=== PATIENT | female | born 1985 | race Two or more races ===

== ENCOUNTER 2021-05-26 20:38 | Emergency (ER) | payer OTHER ==
[~2021-05-26] VITALS: Ht 160 cm; Wt 63.5 kg
[~2021-05-26 20:38] MED LIST: KEPPRA1000 MG; LAMICTAL100 MG PO; ZANTAC150 MG
[2021-05-26] MEDS ORDERED: TRIMETHOPRIM (20:54)
[2021-05-26] MEDS ORDERED: SULFAMETHOXAZOLE (20:54)
[2021-05-26] MEDS ORDERED: PANADOL (20:55)
== END 2021-05-27 08:58 | disposition home or self-care (01) ==
LOC: ER 20:38
DX: R10.31 Right lower quadrant pain (principal); N73.0 Acute parametritis and pelvic cellulitis

== ENCOUNTER 2025-03-08 10:00 | Inpatient (IN) | payer OTHER ==
[~2025-03-08] VITALS: Ht 160 cm; Wt 56.7 kg
[~2025-03-08 10:00] MED LIST changes: -KEPPRA1000 MG; +KEPPRA1000 MG PO; +PANADOL; +SULFAMETHOXAZOLE; +TRIMETHOPRIM
[2025-03-08] MEDS ORDERED: GALLIFREY5 MG PO (10:54)
[2025-03-08] MEDS ORDERED: ZEPBOUND12.5 MG/0. (10:54)
[2025-03-08] MEDS ORDERED: LIPITOR40 MG PO (10:54)
[2025-03-08] MEDS ORDERED: DICLOFENAC POTA50 MG PO (10:56)
[2025-03-08 11:18] LABS: BASO % 1.1 % (0.1-1.2); EOS # 0.09 (0.04-0.54); EOS % 1.5 % (0.7-7.0); LYMPH # 1.98 (1.18-3.74); LYMPH % 32.4 % (19.3-53.1); MEAN PLATELET VOLUME 11.50 fl (9.4-12.4); MONO # 0.29 (0.24-0.82); MONO % 4.7 % (4.7-12.5); NEUT # 3.67 (1.56-6.13); NEUT % 60.0 % (34.0-71.1); RED CELL DISTRIBUTION WIDTH 16.9 % (11.6-14.4)
[2025-03-08 11:24] LABS: URINE APPEARANCE Clear; URINE BILIRRUBIN Negative (NEGATIVE); URINE BLOOD Trace; URINE COLOR Yellow; URINE GLUCOSE Negative (NEGATIVE); URINE KETONE Trace (NEGATIVE); URINE LEUKOCYTE Trace; URINE NITRATE Negative; URINE PROTEIN Trace (NEGATIVE); URINE UROBILINOGEN 0.2 E.U./dl
[2025-03-08 11:29] LABS: URINE BACTERIA 335.9 uL (0.0-1933); URINE EPITHELIAL CELLS 22.4 uL (0.0-38.8); URINE RBC 4.3 uL (0.0-20.8); URINE WBC 40.1 uL (0.0-23.2)
[2025-03-08 11:34] LABS: COVID-19 AG NEGATIVE (NEGATIVE)
[2025-03-08 12:02] LABS: ALT/SGPT 30.0 U/L (12-78); AST/SGOT 18.0 U/L (15-37); BILIRUBIN TOTAL 0.42 mg/dL (0.3-1.2); BUN CREA RATIO 14.0 (7.0-25.0); CREATININE SERUM 0.81 mg/dL (0.55-1.02); GFR 77.54; GLOBULINA 3.5 G/DL (2.4-3.5); GLUCOSE FASTING 85.0 mg/dL (65-100); OSMOLALITY SERUM 287.0 MOSM/KG (275-295)
[2025-03-08 12:03] LABS: URINE CAST 0.58 uL (0.0-1.40); URINE MUCUS HEAVY
[2025-03-08 12:21] LABS: INR 1.0
[2025-03-08 12:26] LABS: RH POSITIVE
[2025-03-16] MEDS ORDERED: CEFTRIAXONE SODIUM 2,000 MG VIAL IV ONE (11:45)
[2025-03-16] MEDS ORDERED: THROMBIN,HU/FIBRINOGEN/CALCIUM 10 ML SYRINGE TOP ONE (11:45)
[2025-03-16] MEDS ORDERED: BUPIVACAINE HCL/PF 0.25% 30ML VIAL InF ONE (11:45)
[2025-03-16] MEDS ORDERED: METRONIDAZOLE/SODIUM CHLORIDE 500 MG/100 ML PIGGYBACK IV ONE (11:45)
[2025-03-16] MEDS ORDERED: VISTASEAL DUAL APPICATOR 1 EACH APPL TOP ONE (11:45)
[2025-03-16] MEDS ORDERED: LIDOCAINE HCL 1%/EPINEPHRINE 20ML VIAL IJ ONE (11:45)
[2025-03-16 13:14] LABS: BASO % 0.3 % (0.1-1.2); EOS # 0.03 (0.04-0.54); EOS % 0.3 % (0.7-7.0); LYMPH # 1.17 (1.18-3.74); LYMPH % 9.9 % (19.3-53.1); MEAN PLATELET VOLUME 11.70 fl (9.4-12.4); MONO # 0.80 (0.24-0.82); MONO % 6.8 % (4.7-12.5); NEUT # 9.70 (1.56-6.13); NEUT % 82.4 % (34.0-71.1); RED CELL DISTRIBUTION WIDTH 17.7 % (11.6-14.4)
[2025-03-16] MEDS ORDERED: DEXTROSE 50 % IN WATER 0.5 G/ML VIAL IV PRN (16:00)
[2025-03-16] MEDS ORDERED: OxyCODONE HCL 5 MG TABLET (ROXICODONE) PO PRN (16:00)
[2025-03-16] MEDS ORDERED: RINGERS SOLUTION,LACTATED 1,000 ML IV SCH (16:00)
[2025-03-16] MEDS ORDERED: MORPHINE SULFATE 4 MG/ML CARTRIDGE IV PRN (16:00)
[2025-03-16] MEDS ORDERED: ONDANSETRON HCL 2 MG/ML VIAL IV PRN (16:00)
[2025-03-16] MEDS ORDERED: SIMETHICONE 125 MG CAPSULE PO SCH (17:00)
[2025-03-16] MEDS ORDERED: METOCLOPRAMIDE HCL 5 MG/ML VIAL IV SCH (17:00)
[2025-03-16] MEDS ORDERED: HYOSCYAMINE SULFATE 0.125 MG TAB.SUBL SL SCH (17:00)
[2025-03-16] MEDS ORDERED: GABAPENTIN 300 MG CAPSULE PO SCH (17:00)
[2025-03-16] MEDS ORDERED: MORPHINE SULFATE 4 MG/ML VIAL IV ONE ×2 (17:15→18:40)
[2025-03-16] MEDS ORDERED: ONDANSETRON HCL 2 MG/ML VIAL IV ONE (17:15)
[2025-03-16] MEDS ORDERED: KETOROLAC TROMETHAMINE 30 MG VIAL IV ONE (19:30)
[2025-03-16] MEDS ORDERED: ACETAMINOPHEN 500 MG GEL..CAP PO SCH (20:00)
[2025-03-16 20:48] VITALS: BP 115/70
[2025-03-16 20:51] LABS: BASO % 0.0 % (0.1-1.2); EOS # 0.00 (0.04-0.54); EOS % 0.0 % (0.7-7.0); LYMPH # 0.25 (1.18-3.74); LYMPH % 15.0 % (19.3-53.1); MEAN PLATELET VOLUME 11.00 fl (9.4-12.4); MONO # 0.28 (0.24-0.82); NEUT # 1.14 (1.56-6.13); NEUT % 68.2 % (34.0-71.1); RED CELL DISTRIBUTION WIDTH 17.6 % (11.6-14.4)
[2025-03-16 20:53] LABS: MONO % 16.8 % (4.7-12.5)
[2025-03-16] MEDS ORDERED: FAMOTIDINE/PF 20 MG/2 ML VIAL IV PUSH SCH (21:00)
[2025-03-16] MEDS ORDERED: CELECOXIB 200 MG CAPSULE PO SCH (21:00)
[2025-03-16] MEDS ORDERED: KETOROLAC TROMETHAMINE 30 MG VIAL IV SCH (21:00)
[2025-03-16 22:16] LABS: BASO % 0.0 % (0.1-1.2); EOS # 0.00 (0.04-0.54); EOS % 0.0 % (0.7-7.0); LYMPH # 0.32 (1.18-3.74); LYMPH % 16.5 % (19.3-53.1); MEAN PLATELET VOLUME 11.10 fl (9.4-12.4); MONO # 0.32 (0.24-0.82); NEUT # 1.30 (1.56-6.13); NEUT % 67.0 % (34.0-71.1); RED CELL DISTRIBUTION WIDTH 17.7 % (11.6-14.4)
[2025-03-16 22:29] LABS: MONO % 16.5 % (4.7-12.5)
[2025-03-17] VITALS: BP 128/79; O2SAT 98
[2025-03-17 04:30] VITALS: BP 115/78
[2025-03-17 06:13] LABS: BASO % 0.0 % (0.1-1.2); EOS # 0.00 (0.04-0.54); EOS % 0.0 % (0.7-7.0); LYMPH # 0.57 (1.18-3.74); LYMPH % 7.4 % (19.3-53.1); MEAN PLATELET VOLUME 11.70 fl (9.4-12.4); MONO # 0.51 (0.24-0.82); MONO % 6.6 % (4.7-12.5); NEUT # 6.61 (1.56-6.13); NEUT % 85.9 % (34.0-71.1); RED CELL DISTRIBUTION WIDTH 17.6 % (11.6-14.4)
[2025-03-17 07:00] LABS: BUN CREA RATIO 6.0 (7.0-25.0); CREATININE SERUM 0.78 mg/dL (0.55-1.02); GFR 80.99; GLUCOSE FASTING 140.0 mg/dL (65-100); OSMOLALITY SERUM 285.0 MOSM/KG (275-295)
[2025-03-17] MEDS ORDERED: MAGNESIUM SULFATE IN WATER 50 ML IV NR (07:45)
[2025-03-17 08:00] VITALS: BP 106/68
[2025-03-17] MEDS ORDERED: LevETIRAcetam 500 MG TAB. PO SCH ×2 (09:00→21:00)
[2025-03-17] MEDS ORDERED: LACTOBACILLUS ACIDOPHILUS 1 CAP CAP PO SCH (09:00)
[2025-03-17 16:45] VITALS: BP 119/79
[2025-03-17] MEDS ORDERED: ENOXAPARIN SODIUM 40 MG/0.4 ML SYRINGE SUBCUTANEO SCH (17:00)
[2025-03-17] MEDS ORDERED: ATORVASTATIN CALCIUM 40 MG TABLET PO SCH (17:00)
[2025-03-18 02:02] VITALS: BP 104/63
[2025-03-18 06:46] LABS: BASO % 0.4 % (0.1-1.2); EOS # 0.02 (0.04-0.54); EOS % 0.2 % (0.7-7.0); LYMPH # 0.93 (1.18-3.74); LYMPH % 8.2 % (19.3-53.1); MEAN PLATELET VOLUME 11.70 fl (9.4-12.4); MONO # 0.48 (0.24-0.82); MONO % 4.2 % (4.7-12.5); NEUT # 9.73 (1.56-6.13); NEUT % 86.1 % (34.0-71.1); RED CELL DISTRIBUTION WIDTH 18.5 % (11.6-14.4)
[2025-03-18 07:41] LABS: BUN CREA RATIO 11.0 (7.0-25.0); CREATININE SERUM 0.65 mg/dL (0.55-1.02); GFR 99.96; GLUCOSE FASTING 97.0 mg/dL (65-100); OSMOLALITY SERUM 287.0 MOSM/KG (275-295)
[2025-03-18 08:00] VITALS: BP 114/61
[2025-03-18] MEDS ORDERED: GABAPENTIN 300 MG CAPSULE PO PRN (08:44)
[2025-03-18] MEDS ORDERED: SOD FERRIC GLUC COMPLX/SUCROSE 62.5 MG in 0.9 % SODIUM CHLORIDE 50 ML IV SCH (09:00)
[2025-03-18] MEDS ORDERED: ATORVASTATIN CALCIUM 40 MG TABLET PO SCH (09:00)
[2025-03-18] MEDS ORDERED: Cyanocobalamin/Mecobalamin 1 TAB.SL SL SCH (09:00)
[2025-03-18] MEDS ORDERED: ENOXAPARIN SODIUM 40 MG/0.4 ML SYRINGE SUBCUTANEO SCH (09:00)
[2025-03-18] MEDS ORDERED: POTASSIUM PHOS,M-BASIC-D-BASIC 3 MM/ML VIAL IV NR (09:15)
[2025-03-18 16:00] VITALS: BP 111/66; O2SAT 96
[2025-03-18] MEDS ORDERED: OxyCODONE HCL 5 MG TABLET (ROXICODONE) PO PRN (19:30)
[2025-03-19 00:29] VITALS: BP 98/61; O2SAT 96
[2025-03-19 08:00] VITALS: BP 107/68; O2SAT 95
[2025-03-19 08:22] LABS: BASO % 0.2 % (0.1-1.2); EOS # 0.25 (0.04-0.54); EOS % 2.4 % (0.7-7.0); LYMPH # 1.66 (1.18-3.74); LYMPH % 16.1 % (19.3-53.1); MEAN PLATELET VOLUME 11.70 fl (9.4-12.4); MONO # 0.50 (0.24-0.82); MONO % 4.8 % (4.7-12.5); NEUT # 7.84 (1.56-6.13); NEUT % 76.0 % (34.0-71.1); RED CELL DISTRIBUTION WIDTH 19.0 % (11.6-14.4)
== END 2025-03-19 12:33 | disposition home or self-care (01) | DRG 743 ==
LOC: SURH 03-16 07:00 → O/R 03-16 16:56 → OB/GYN 03-16 16:56
PROVIDERS: Internal Medicine Geriatric Medicine; Student in an Organized Health Care Education/Training Program; Surgery; Urology; ADMIT Obstetrics & Gynecology Gynecology; ATTEND Obstetrics & Gynecology Gynecology
PROC: 0DNW4ZZ Release Peritoneum, Percutaneous Endoscopic Approach (ICD-10-PCS; 2025-03-16)
PROC: 0TN74ZZ Release Left Ureter, Percutaneous Endoscopic Approach (ICD-10-PCS; 2025-03-16)
PROC: 0TN64ZZ Release Right Ureter, Percutaneous Endoscopic Approach (ICD-10-PCS; 2025-03-16)
PROC: 0DTN4ZZ Resection of Sigmoid Colon, Percutaneous Endoscopic Approach (ICD-10-PCS; 2025-03-16)
PROC: 0DBP4ZZ Excision of Rectum, Percutaneous Endoscopic Approach (ICD-10-PCS; 2025-03-16)
PROC: 0DNW4ZZ Release Peritoneum, Percutaneous Endoscopic Approach (ICD-10-PCS; 2025-03-16)
PROC: 0DTK4ZZ Resection of Ascending Colon, Percutaneous Endoscopic Approach (ICD-10-PCS; 2025-03-16)
PROC: 0DBB4ZZ Excision of Ileum, Percutaneous Endoscopic Approach (ICD-10-PCS; 2025-03-16)
PROC: 0DBP4ZZ Excision of Rectum, Percutaneous Endoscopic Approach (ICD-10-PCS; 2025-03-16)
PROC: 0UBG4ZZ Excision of Vagina, Percutaneous Endoscopic Approach (ICD-10-PCS; 2025-03-16)
PROC: 0T788DZ Dilation of Bilateral Ureters with Intraluminal Device, Via Natural or Artificial Opening Endoscopic (ICD-10-PCS; 2025-03-16)
PROC: 0DJD8ZZ Inspection of Lower Intestinal Tract, Via Natural or Artificial Opening Endoscopic (ICD-10-PCS; 2025-03-16)
PROC: 0UT94ZZ Resection of Uterus, Percutaneous Endoscopic Approach (ICD-10-PCS; principal; 2025-03-16 07:00)
PROC: 0UT74ZZ Resection of Bilateral Fallopian Tubes, Percutaneous Endoscopic Approach (ICD-10-PCS; 2025-03-16 07:00)
PROC: 0UT24ZZ Resection of Bilateral Ovaries, Percutaneous Endoscopic Approach (ICD-10-PCS; 2025-03-16 07:00)
DX: D25.1 Intramural leiomyoma of uterus (principal); D25.2 Subserosal leiomyoma of uterus; D25.0 Submucous leiomyoma of uterus; N84.0 Polyp of corpus uteri; N80.03 Adenomyosis of the uterus; D36.0 Benign neoplasm of lymph nodes; N80.519 Endometriosis of the rectum, unspecified depth; N80.00 Endometriosis of the uterus, unspecified; N80.202 Endometriosis of left fallopian tube, unspecified depth; N80.5 Endometriosis of intestine; N80.123 Deep endometriosis of bilateral ovaries; N72 Inflammatory disease of cervix uteri; N80.42 Endometriosis of rectovaginal septum with involvement of vagina